=== PATIENT | male | born 1995 | race Caucasian/White ===

== ENCOUNTER 2018-04-23 00:45 | Emergency (ER) | payer SELFPAY ==
[2018-04-23] MEDS ORDERED: Lidocaine 5% Patch TD STA (01:20)
--- NOTE | 2018-04-23 01:21 | ED PDOC ---
HPI: Back Time Seen by Provider: 04/23/18 01:02 Chief Complaint (Nursing): Back Pain Chief Complaint (Provider): low back pain History Per: Patient Additional Complaint(s): 22-year-old male presents with lower back pain that started 2 hours prior to arrival. Patient believes that he strained a muscle while working out earlier today. He took 2 Motrin 800 mg tabs about 1 hour prior to arrival which did not help so he came to ED. Patient states pain radiates to bilateral lower extremities. He denies any bowel or bladder dysfunction. PMD: none Past Medical History Reviewed: Historical Data, Nursing Documentation, Vital Signs Vital Signs: Last Vital Signs Temp 98.9 F 04/23/18 00:55 Pulse 99 H 04/23/18 00:55 Resp 16 04/23/18 00:55 BP Pulse Ox 100 04/23/18 00:55 - Medical History PMH: No Chronic Diseases - Surgical History Surgical History: No Surg Hx - Family History Family History: States: No Known Family Hx - Living Arrangements Living Arrangements: With Family - Social History Current smoker - smoking cessation education provided: No Alcohol: None Drugs: Denies - Home Medications Home Medications: Ambulatory Orders Medication Instructions Recorded Cyclobenzaprine [Cyclobenzaprine 10 mg PO TID PRN #20 tab 04/23/18 HCl] Naproxen [Naprosyn] 500 mg PO BID #20 tab 04/23/18 Prednisone 50 mg PO DAILY #5 tablet 04/23/18 - Allergies Allergies/Adverse Reactions: Allergies Allergy/AdvReac Type Severity Reaction Status Date / Time No Known Allergies Allergy Verified 02/18/15 00:20 Review of Systems ROS Statement: Except As Marked, All Systems Reviewed And Found Negative Constitutional: Negative for: Fever, Chills Gastrointestinal: Negative for: Nausea, Vomiting Genitourinary Male: Negative for: Dysuria, Frequency, Incontinence, Hematuria Musculoskeletal: Positive for: Back Pain Physical Exam - Reviewed Nursing Documentation Reviewed: Yes Vital Signs Reviewed: Yes - Physical Exam Appears: Positive for: Well, Non-toxic, No Acute Distress Skin: Positive for: Normal Color. Negative for: Rash Eye Exam: Positive for: Normal appearance Cardiovascular/Chest: Positive for: Regular Rate, Rhythm Respiratory: Positive for: Normal Breath Sounds. Negative for: Respiratory Distress Back: Positive for: Vertebral Tenderness (Tenderness along midline of lumbar spine with no step-off, palpable muscle spasm noted, negative bilateral straight leg raise, patient able to heel and toe walk). Negative for: L CVA Tenderness, R CVA Tenderness Extremity: Positive for: Normal ROM Neurologic/Psych: Positive for: Alert, Oriented, Gait (steady) - ECG O2 Sat by Pulse Oximetry: 100 Pulse Ox Interpretation: Normal - Other Rad LS Spine X-ray X-Ray: Interpreted by Me, Viewed By Me X-Ray Interpretation: no fx, no dis Medical Decision Making Medical Decision Makin-year-old male with lower back pain Plan: IM toradol PO tylenol PO flexeril Lidoderm patch LS Spine X-ray Patient is aware of diagnostic testing results. All questions answered. He reports some improvement to pain s/p meds given in ED. Patient given rx flexeril, prednisone and naprosyn. He was referred to [facility] for follow up. Disposition - Clinical Impression Clinical Impression: Back strain - Patient ED Disposition Is Patient to be Admitted: No Counseled Patient/Family Regarding: Studies Performed, Diagnosis, Need For Followup, Rx Given - Disposition Referrals: Venkat Cat MD [Staff Provider] - Disposition: Routine/Home Disposition Time: 01:51 Condition: STABLE Additional Instructions: Take rx meds as directed as needed for pain. Rest and avoid heavy lifting. Follow up with orthopedist for any persistent symptoms. Prescriptions: Cyclobenzaprine [Cyclobenzaprine HCl] 10 mg PO TID PRN #20 tab PRN Reason: Muscle Spasm Naproxen [Naprosyn] 500 mg PO BID #20 tab Prednisone 50 mg PO DAILY #5 tablet Instructions: Back Exercises, Muscle Strain, Low Back Pain in Adults Forms: [employer] ([place])
[2018-04-23] MEDS ORDERED: Lidocaine 5% Patch TD ONE (01:27)
[2018-04-23 02:07] VITALS: BP 147/71; PULSE 87; RESP 18; TEMP 98.2; O2SAT 99
--- NOTE | 2018-04-23 11:21 | RAD ---
Date of service: 04/23/2018 PROCEDURE: Radiographs of the Lumbar Spine. HISTORY: trauma COMPARISON: No prior. FINDINGS: BONES: Normal alignment. No listhesis. No fracture. DISC SPACES: Unremarkable. OTHER FINDINGS: None. IMPRESSION: Unremarkable radiographs of the lumbar spine.
== END 2018-04-23 02:45 | disposition home or self-care (01) ==
LOC: H.ER 00:45
DX: S39.012A Strain of muscle, fascia and tendon of lower back, initial encounter (principal); X50.9XXA Other and unspecified overexertion or strenuous movements or postures, initial encounter; Y92.89 Other specified places as the place of occurrence of the external cause
CPT/HCPCS: 72100; 96372; 99283; J1885; J2930